=== PATIENT | female | born 1945 | race Caucasian/White ===

== ENCOUNTER 2021-04-17 09:13 | Observation (INO) | payer MEDICARE, BC ==
[2021-04-17 10:10] LABS: #Lymphocytes 0.8 thou/uL (1.20-3.40); #Monocytes 0.7 thou/uL (0.11-0.59); #Neutrophils 6.4 thou/uL (1.40-6.50); %Basophils 0.6 % (0.0-1.0); %Eosinophils 0.6 % (0.0-10.0); %Monocytes 8.3 % (0.0-10.0); %Neutrophils 80.5 % (42.0-75.0); Mean Corpuscular HGB CONC 33.6 g/dL (32.0-36.0); Mean Corpuscular Hemoglobin 32.7 pg (27.0-31.0); Mean Corpuscular Volume 97.2 fL (78.0-98.0); Mean Platelet Volume 7.5 fL (7.4-10.4); Platelet Count 180 thou/uL (130-400); Red Blood Cell (RBC) Count 4.61 mill/uL (4.20-5.40)
[2021-04-17] MEDS ORDERED: Morphine 4 MG/ML VIAL ONE (10:11)
[2021-04-17] MEDS ORDERED: Ondansetron PF 4 MG/2 ML Vial ONE (10:11)
[2021-04-17 10:34] LABS: ALT (SGPT) 14 U/L (8-55); AST (SGOT) 25 U/L (5-34); Albumin 3.9 g/dL (3.4-4.8); Alkaline Phosphatase 59 U/L (40-110); Anion Gap 15 mmol/L (10-20); BUN (Urea Nitrogen) 25 mg/dL (9.8-20.1); Bilirubin, Total 0.8 mg/dL (0.2-1.2); Calc. Creatinine Clearance 0 mL/min (70-130); Calcium 9.3 mg/dL (7.8-10.44); Carbon Dioxide 21 mmol/L (23-31); Chloride 106 mmol/L (98-107); Globulin 3.1 g/dL (2.4-3.5); Glucose 76 mg/dL (83-110); Potassium 4.1 mmol/L (3.5-5.1); Sodium 138 mmol/L (136-145)
[2021-04-17] MEDS ORDERED: Promethazine HCl 25 MG/ML VIAL IM PRN (11:10)
[2021-04-17] MEDS ORDERED: Ondansetron PF 4 MG/2 ML Vial IVP PRN (11:10)
[2021-04-17] MEDS ORDERED: Sodium Chloride 0.9% 1,000 ML IV SCH (11:15)
[2021-04-17] MEDS ORDERED: Xylocaine 1% w/ Epi 1:100K 10 ML VIAL ONE (11:52)
[2021-04-17] MEDS: Acetaminophen 500 MG TAB PO SCH ×2 (12:00→15:18)
[2021-04-17 16:16] VITALS: BMI 20.6
[2021-04-17] MEDS ORDERED: Cyclobenzaprine 10 MG TAB PO PRN (16:29)
[2021-04-17] MEDS ORDERED: Acetaminophen/Codeine 30-300mg Tablet PO PRN (16:30)
[2021-04-17] MEDS ORDERED: hydrALAZINE 20 MG/ML VIAL SLOW IVP PRN (16:41)
[2021-04-17] MEDS ORDERED: Atorvastatin Calcium 10 MG TAB PO SCH (21:00)
[2021-04-17] MEDS ORDERED: Lisinopril 10 MG TAB PO SCH (21:00)
[2021-04-17] MEDS ORDERED: Acetaminophen 500 MG TAB PO SCH (22:00)
[2021-04-17] MEDS: Acetaminophen 325 MG TAB PO SCH (22:48)
[2021-04-17] MEDS: cycloSPORINE 0.05% Ophthalmic Droperette EA EYE SCH (22:50)
[2021-04-17 22:51] LABS: SARS-CoV-2 PCR by NAA Not Detected (NotDetected)
[2021-04-18] MEDS: Acetaminophen 325 MG TAB PO SCH (04:20)
[2021-04-18] MEDS ORDERED: Levothyroxine Sodium 75 MCG TAB PO SCH (06:00)
[2021-04-18] MEDS: cycloSPORINE 0.05% Ophthalmic Droperette EA EYE SCH (08:47)
[2021-04-18] MEDS ORDERED: Lisinopril 10 MG TAB PO SCH ×2 (09:00)
[2021-04-18] MEDS ORDERED: Gabapentin 300 MG CAP PO SCH ×2 (09:00)
[2021-04-18 12:07] VITALS: BP 112/66; TEMP 97.9
== END 2021-04-18 12:26 | disposition home or self-care (01) ==
LOC: ERS 09:13 → SURG A 11:10
PROVIDERS: ADMIT Surgery; ATTEND Surgery
DX: R55 Syncope and collapse (principal); S02.118A Other fracture of occiput, unspecified side, initial encounter for closed fracture; S06.5X9A Traumatic subdural hemorrhage with loss of consciousness of unspecified duration, initial encounter; S06.6X9A Traumatic subarachnoid hemorrhage with loss of consciousness of unspecified duration, initial encounter; S06.2X9A Diffuse traumatic brain injury with loss of consciousness of unspecified duration, initial encounter; I10 Essential (primary) hypertension; I25.10 Atherosclerotic heart disease of native coronary artery without angina pectoris; I65.21 Occlusion and stenosis of right carotid artery; E03.9 Hypothyroidism, unspecified; G62.9 Polyneuropathy, unspecified; M25.78 Osteophyte, vertebrae; M48.02 Spinal stenosis, cervical region; I08.1 Rheumatic disorders of both mitral and tricuspid valves; Z79.82 Long term (current) use of aspirin; Z79.899 Other long term (current) drug therapy; Z88.2 Allergy status to sulfonamides; Z91.018 Allergy to other foods; Z20.822 Contact with and (suspected) exposure to COVID-19; W19.XXXA Unspecified fall, initial encounter; Y92.002 Bathroom of unspecified non-institutional (private) residence as the place of occurrence of the external cause
CPT/HCPCS: 70450 ×2; 72125; 80053; 84484; 85025; 93005; 93306; 96374; 96375; 97116; 97139; 99285; G0378 ×3; U0003; U0005; 36415; G0390; J2270; J2405; J7050

== ENCOUNTER 2021-05-05 10:56 | Emergency (ER) | payer MEDICARE, BC ==
[2021-05-05] MEDS ORDERED: Xylocaine 1% w/ Epi 1:100K 10 ML VIAL ONE (11:13)
== END 2021-05-05 11:28 | disposition home or self-care (01) ==
LOC: ERS 10:56
DX: S01.01XD Laceration without foreign body of scalp, subsequent encounter (principal); Z79.899 Other long term (current) drug therapy; I10 Essential (primary) hypertension; E03.9 Hypothyroidism, unspecified

== ENCOUNTER 2021-05-05 11:38 | Outpatient (CLI) | payer MEDICARE, BC | END 2021-05-05 11:39 | disposition home or self-care (01) | LOC: CT 11:38 | PROVIDERS: ATTEND Surgery | DX: S02.91XA Unspecified fracture of skull, initial encounter for closed fracture (principal); M47.812 Spondylosis without myelopathy or radiculopathy, cervical region | CPT/HCPCS: 70450; 72040 ==

== ENCOUNTER 2022-10-25 12:46 | Outpatient (CLI) | payer MEDICARE, BC | END 2022-10-25 12:47 | disposition home or self-care (01) | LOC: BICULT 12:46 | PROVIDERS: ATTEND Physician Assistant Medical | DX: R10.11 Right upper quadrant pain (principal) | CPT/HCPCS: 76705 ==

== ENCOUNTER 2023-05-29 | Outpatient (CLI) | payer MEDICARE, BC | END 2023-05-29 11:17 | disposition home or self-care (01) | DX: M48.02 Spinal stenosis, cervical region (principal); M47.812 Spondylosis without myelopathy or radiculopathy, cervical region; G95.89 Other specified diseases of spinal cord; R93.7 Abnormal findings on diagnostic imaging of other parts of musculoskeletal system; M48.8X2 Other specified spondylopathies, cervical region ==

== ENCOUNTER 2023-07-18 06:11 | Inpatient (IN) | payer MEDICARE, BC ==
[2023-07-18] MEDS ORDERED: Lidocaine 1% MPF 2 ML VIAL ONE (06:21)
[2023-07-18] MEDS ORDERED: CEFAZOLIN 2 GM VIAL ONE (06:21)
[2023-07-18] MEDS ORDERED: Sodium Chloride 0.9% 100 ML ONE (06:22)
[2023-07-18] MEDS ORDERED: Vancomycin 1 GM VIAL ONE (06:28)
[2023-07-18] MEDS ORDERED: Thrombin 5000 UNITS/5 ML VIAL ONE (06:28)
[2023-07-18] MEDS ORDERED: fentaNYL PF 100 MCG/2 ML SYRINGE ONE ×3 (06:52→10:29)
[2023-07-18] MEDS ORDERED: PROPOFOL 20 ML ONE (06:52)
[2023-07-18] MEDS ORDERED: Rocuronium Bromide 10 MG/ML (10ML VIAL) ONE (06:52)
[2023-07-18] MEDS ORDERED: Lidocaine 1% PF 5 ML VIAL ONE (06:52)
[2023-07-18] MEDS ORDERED: Midazolam HCl 2 mg/2 ml Vial ONE (07:29)
[2023-07-18] MEDS ORDERED: Dexamethasone 20 MG/5 ML VIAL ONE (08:16)
[2023-07-18] MEDS ORDERED: ePHEDrine Sulfate 50 MG/10 ML VIAL ONE (08:16)
[2023-07-18] MEDS ORDERED: Ondansetron PF 4 MG/2 ML Vial ONE (09:03)
[2023-07-18] MEDS ORDERED: Ondansetron HCl/PF 4 MG/2 ML Vial IVP PRN (09:18)
[2023-07-18] MEDS ORDERED: Promethazine HCl 25 MG/ML VIAL IM PRN (09:18)
[2023-07-18] MEDS ORDERED: Morphine Sulfate 2 MG/ML SYRINGE SLOW IVP PRN (09:18)
[2023-07-18] MEDS ORDERED: HYDROmorphone 2 MG/ML VIAL SLOW IVP PRN (09:18)
[2023-07-18] MEDS ORDERED: PACU-Morphine 4MG/ML VIAL SLOW IVP PRN (09:18)
[2023-07-18] MEDS ORDERED: PHENYLEPHRINE-NS 100 MCG/ML 10 ML SYRINGE ONE ×2 (09:25→09:34)
[2023-07-18] MEDS ORDERED: fentaNYL 50 mcg/mL 1 mL Vial ONE (09:35)
[2023-07-18] MEDS ORDERED: NEOSTIGMINE 3 MG/3 ML SYR 3 MG/3 ML SYRINGE ONE (09:36)
[2023-07-18] MEDS ORDERED: Glycopyrrolate 0.2 MG/ML 5 ML SYRINGE ONE (09:36)
[2023-07-18] MEDS ORDERED: Ondansetron PF 4 MG/2 ML Vial IVP PRN (09:52)
[2023-07-18] MEDS ORDERED: Acetaminophen 325 MG TAB PO PRN (09:52)
[2023-07-18] MEDS ORDERED: Milk Of Magnesia 30 ML UDCUP PO PRN (09:52)
[2023-07-18] MEDS ORDERED: diphenhydrAMINE 25 MG CAP PO PRN (09:52)
[2023-07-18] MEDS ORDERED: Diazepam 5 MG TAB PO PRN (09:59)
[2023-07-18] MEDS ORDERED: Lisinopril 10 MG TAB PO PRN (10:00)
[2023-07-18] MEDS ORDERED: HYDROmorphone 0.5 MG/0.5 ML SYRINGE ONE ×2 (10:11→10:29)
[2023-07-18] MEDS: hydrALAZINE 20 MG/ML VIAL SLOW IVP PRN (11:19)
[2023-07-18] MEDS: HYDROcodone/Acetaminophen 7.5/325 mg Tablet PO PRN (11:20)
[2023-07-18] MEDS: Sodium Chloride 0.9% 1,000 ML IV SCH (11:31)
[2023-07-18 11:58] VITALS: BMI 20.5
[2023-07-18] MEDS: CEFAZOLIN 2 GM in Sodium Chloride 0.9% 100 ML IVPB SCH (13:56)
[2023-07-18] MEDS: hydrALAZINE 25 MG TAB PO SCH (14:06)
[2023-07-18] MEDS: traMADol HCl 50 MG TAB PO PRN (15:29)
[2023-07-18] MEDS ORDERED: Atorvastatin Calcium 40 MG TAB PO SCH (21:00)
[2023-07-18] MEDS ORDERED: Aspirin 81 mg Enteric Coated Tablet PO SCH (21:00)
[2023-07-18] MEDS: Atorvastatin Calcium 10 MG TAB PO SCH (21:17)
[2023-07-18] MEDS: Gabapentin 300 MG CAP PO SCH (21:17)
[2023-07-19] MEDS: Levothyroxine Sodium 75 MCG TAB PO SCH (05:42)
[2023-07-19] MEDS: Estradiol 1 MG TAB PO SCH (08:42)
[2023-07-19] MEDS: Aspirin 81 mg Enteric Coated Tablet PO SCH (08:42)
[2023-07-19] MEDS: Ascorbic Acid 500 mg Chewable Tablet PO SCH (08:42)
[2023-07-19] MEDS: Cholecalciferol 1,000 UNITS (25 MCG) TAB PO SCH (08:42)
[2023-07-19] MEDS: tiZANidine HCl 4 MG TAB PO PRN (08:43)
[2023-07-19] MEDS: BIOTIN 2500 MCG PO SCH (12:29)
[2023-07-19] MEDS: [UNRECOGNIZED DRUG - OTHER] PO SCH (12:29)
[2023-07-19] MEDS: Morphine 2 MG/ML VIAL SLOW IVP PRN (14:32)
[2023-07-19] MEDS ORDERED: Ketorolac Tromethamine 30 MG (1 mL) VIAL IVP PRN (15:44)
[2023-07-19] MEDS: Pantoprazole DR 40 MG TAB PO SCH (16:36)
[2023-07-19] MEDS: Dexamethasone 10 MG/ML VIAL SLOW IVP SCH (16:36)
[2023-07-20] MEDS: Dexamethasone 1 MG TAB PO SCH ×2 (00:22→23:29)
[2023-07-20 05:51] LABS: Anion Gap 15 mmol/L (10-20); BUN (Urea Nitrogen) 21 mg/dL (9.8-20.1); Calc. Creatinine Clearance 44 mL/min (70-130); Calcium 8.7 mg/dL (7.8-10.44); Carbon Dioxide 24 mmol/L (23-31); Chloride 102 mmol/L (98-107); Estimated GFR 74; Glucose 128 mg/dL (83-110); Potassium 4.4 mmol/L (3.5-5.1); Sodium 137 mmol/L (136-145)
[2023-07-20] MEDS ORDERED: Labetalol HCl 100 MG/20 ML VIAL SLOW IVP PRN (07:44)
[2023-07-20] MEDS: Pantoprazole DR 40 MG TAB PO SCH (08:29)
[2023-07-20] MEDS: Acetaminophen/Codeine 30-300mg Tablet PO PRN (15:22)
[2023-07-21 11:29] VITALS: TEMP 97.6
[2023-07-21 15:33] VITALS: BP 170/76
[2023-07-22] MEDS ORDERED: Dexamethasone 1 MG TAB PO SCH
[2023-07-23] MEDS ORDERED: Dexamethasone 1 MG TAB PO SCH
== END 2023-07-21 20:30 | DRG 519 ==
LOC: SDC 06:11 → SURG A 09:52 → OBSVTOIN 07-19 15:43
PROVIDERS: ADMIT Surgery; ATTEND Surgery
PROC: 01N10ZZ Release Cervical Nerve, Open Approach (ICD-10-PCS; principal; 2023-07-18)
PROC: 00NW0ZZ Release Cervical Spinal Cord, Open Approach (ICD-10-PCS; 2023-07-18)
DX: M48.02 Spinal stenosis, cervical region (principal); M47.12 Other spondylosis with myelopathy, cervical region; M54.12 Radiculopathy, cervical region; I10 Essential (primary) hypertension; E78.5 Hyperlipidemia, unspecified; I65.29 Occlusion and stenosis of unspecified carotid artery; E03.9 Hypothyroidism, unspecified; F41.9 Anxiety disorder, unspecified; Z88.2 Allergy status to sulfonamides; Z90.710 Acquired absence of both cervix and uterus
CPT/HCPCS: 36415; 80048; 93970; J0360; J1100; J1170; J2250; J2272; J2405; J2704; J3010; J3370; J3490; J7050; J8540

== ENCOUNTER 2024-01-03 13:19 | Outpatient (CLI) | payer MEDICARE, BC | END 2024-01-03 13:20 | disposition home or self-care (01) | LOC: RAD 13:19 | PROVIDERS: ATTEND Physician Assistant | DX: M54.2 Cervicalgia (principal); M47.812 Spondylosis without myelopathy or radiculopathy, cervical region | CPT/HCPCS: 72040 ==

== ENCOUNTER 2024-02-19 10:21 | Outpatient (CLI) | payer MEDICARE, BC | END 2024-02-19 10:22 | disposition home or self-care (01) | LOC: BICRAD 10:21 | PROVIDERS: ATTEND Physician Assistant | DX: M54.2 Cervicalgia (principal); M47.812 Spondylosis without myelopathy or radiculopathy, cervical region | CPT/HCPCS: 72040 ==

== ENCOUNTER 2024-03-28 09:16 | Emergency (ER) | payer MEDICARE, BC ==
[2024-03-28] MEDS ORDERED: Acetaminophen 500 MG TAB ONE (11:01)
[2024-03-28] MEDS ORDERED: hydrALAZINE 20 MG/ML VIAL ONE (11:34)
[2024-03-28 11:53] LABS: #Basophils 0.07 10x3/uL (0.0-0.2); %Basophils 1.3 % (0.0-1.0); %Eosinophils 0.8 % (0.0-10.0); %Lymphocytes 12.8 % (21.0-51.0); %Neutrophils 72.9 % (42.0-75.0); Hematocrit 43.9 % (36.0-47.0); Hemoglobin 14.4 g/dL (12.0-16.0); Mean Corpuscular HGB CONC 32.8 g/dL (32.0-36.0); Mean Corpuscular Hemoglobin 31.6 pg (27.0-31.0); Mean Corpuscular Volume 96.5 fL (78.0-98.0); Mean Platelet Volume 9.3 fL (7.4-10.4); Platelet Count 231 10x3/uL (130-400); RBC Distribution Width 11.6 % (11.5-14.5); Red Blood Cell (RBC) Count 4.55 mill/uL (4.20-5.40)
[2024-03-28 11:57] LABS: PTT 28.1 sec (22.9-36.1); Prothrombin Time 13.4 sec (12.0-14.7)
[2024-03-28 12:01] LABS: ALT (SGPT) 14 U/L (8-55); AST (SGOT) 28 U/L (5-34); Albumin 4.1 g/dL (3.4-4.8); Alkaline Phosphatase 62 U/L (40-110); Anion Gap 12 mmol/L (10-20); BUN (Urea Nitrogen) 23 mg/dL (9.8-20.1); Bilirubin, Total 0.7 mg/dL (0.2-1.2); Calc. Creatinine Clearance 0 mL/min (70-130); Calcium 9.5 mg/dL (7.8-10.44); Carbon Dioxide 27 mmol/L (23-31); Chloride 102 mmol/L (98-107); Estimated GFR 55; Globulin 3.1 g/dL (2.4-3.5); Glucose 90 mg/dL (83-110); Potassium 4.1 mmol/L (3.5-5.1); Protein, Total 7.2 g/dL (5.8-8.1); Sodium 137 mmol/L (136-145)
[2024-03-28] MEDS ORDERED: Iopamidol-370 76% 500 ML MDV (1 ML CHARGE) ONE (14:53)
== END 2024-03-28 13:43 | disposition home or self-care (01) ==
LOC: ERS 09:16
DX: R55 Syncope and collapse (principal); S01.21XA Laceration without foreign body of nose, initial encounter; I10 Essential (primary) hypertension; E03.9 Hypothyroidism, unspecified; Z79.82 Long term (current) use of aspirin; Z79.899 Other long term (current) drug therapy; W01.10XA Fall on same level from slipping, tripping and stumbling with subsequent striking against unspecified object, initial encounter
CPT/HCPCS: 12011; 70450; 70496; 70498; 71045; 72125; 80053; 83880; 85025; 85610; 85730; 86850; 86900; 86901; 93005; 96374; 99284; J0360; Q9967; 36415

== ENCOUNTER 2024-05-06 11:20 | Outpatient (CLI) | payer MEDICARE, BC | END 2024-05-06 11:21 | disposition home or self-care (01) | LOC: BICMRI 11:20 | PROVIDERS: ATTEND Surgery | DX: M54.12 Radiculopathy, cervical region (principal); M48.02 Spinal stenosis, cervical region | CPT/HCPCS: 72141 ==